=== PATIENT | male | born 1980 | race African-American/Black ===

== ENCOUNTER 2024-03-03 10:59 | Outpatient (AMB) | payer OTHER, SELFPAY ==
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
[2024-03-03 11:12] VITALS: BMI 31.2
== END 2024-03-03 11:26 | disposition home or self-care (01) ==
PROVIDERS: PCP Internal Medicine; Visit Provider Orthopaedic Surgery
DX: M25.511 Pain in right shoulder (principal)
CPT/HCPCS: 99203

== ENCOUNTER → 2024-03-03 10:59 | Outpatient (BNVA) | payer OTHER, SELFPAY | PROVIDERS: PCP Internal Medicine; Visit Provider Orthopaedic Surgery ==

== ENCOUNTER 2024-05-11 13:33 | Outpatient (AMB) | payer OTHER, SELFPAY ==
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
== END 2024-05-11 13:41 | disposition home or self-care (01) ==
LOC: HO.HOS 13:33
PROVIDERS: PCP Internal Medicine; Visit Provider Orthopaedic Surgery
DX: M25.511 Pain in right shoulder (principal)
CPT/HCPCS: 99213

== ENCOUNTER → 2024-05-11 13:33 | Outpatient (BNVA) | payer OTHER, SELFPAY | PROVIDERS: PCP Internal Medicine; Visit Provider Orthopaedic Surgery ==

== ENCOUNTER 2024-08-01 13:01 | Outpatient (AMB) | payer OTHER, SELFPAY ==
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
--- OUTSIDE RECORDS SUMMARY | 2024-08-01 14:18 | XMS_ITS | Continuity of Care Document ---
Author Organization [facility] Address [address] [place] [address]- Care Team Providers Care Punchboard Inserter Name Role Phone Rosa Elena WONG, Rosie Tatum Primary Care Physician [id number] Date(s): 06/07/24 - 07/07/[address] [address] Encounter Type: Triage Allergies, Adverse Reactions, Alerts No Known Allergies Immunizations Given and Recorded Vaccine Date Status Refusal Reason SARS-CoV-2 (COVID-19) mRNA BNT-162b2 vac 06/15/21 Recorded SARS-CoV-2 (COVID-19) mRNA BNT-162b2 vac 1 11/12/20 Recorded SARS-CoV-2 (COVID-19) mRNA BNT-162b2 vac 10/22/20 Recorded influenza virus vaccine, inactivated 05/27/16 Eulalio rded influenza virus vaccine, inactivated 2 04/16/16 Gi floresita tetanus/diphtheria/pertussis, acel(Tdap) 01/25/14 Given 1Result Comment: [facility] 2Admin Note: Declined Medications atorvastatin 20 mg oral tablet 1 tablet = 20 mg, By Mouth, Daily at bedtime, # 90 tablet, 2 Refills, Maintenance, 05/30/24 4:03:00PM EST, Tablet, [id number], Partial fill upon patient request if the prescription is for a schedule II opioid drug., 179, cm, 05/30/24 15:44:00 EST, Height, 104.5, kg, 09/17/22 12:29:00 EST, Dry Weight Start Date: 05/30/24 Status: Ordered Quantity: 90.0 Unit: tablet Repeat number: 3 methylphenidate 20 mg oral tablet 1 tablet = 20 mg, By Mouth, 3 times a day, last dose before 6 PM Dx: narcolepsy, # 90 tablet, 0 Refills, Maintenance, 06/07/24 4:35:00 PM EST, Tablet, [facility] #[id number], mistakenly sent to [email or web address] to [facility], 179, cm, 05/30/24 15:44:00 EST, Height, 104.5, kg, 09/17/22 12:29:00 EST, Dry Weight Start Date: 06/07/24 Status: Ordered Quantity: 90.0 Unit: tablet Repeat number: 1 sildenafil 100 mg oral tablet 1 tablet, By Mouth, Daily, PRN NEEDED FOR ERETILE DYSFUNCTION, BEFORE SEXUAL ACTIVITY, # 30 tablet, 2 Refills, Maintenance, 06/25/24 12:09:00 PM EST, [facility] # [facility], 179, cm, 05/30/24 15:44:00 EST, Height, 104.5, kg, 09/17/22 12:29:00 EST, Dry Weight Start Date: 06/25/24 Stop Date: 06/25/24 Status: Ordered Quantity: 30.0 Unit: tablet Repeat number: 3 Problem List Condition Confirmation Course Effective Dates Status Health St atus Informant Asthma, intermittent Confirmed Active Narcolepsy with cataplexy Confirmed Active Dyslipidemia 1 Confirmed Active Elevated serum creatinine Confirmed Active Erectile dysfunction Confirmed Active Family history of neoplasm of breast 2 Confirmed Active Grief Confirmed Active Obese class I Confirmed Active Prediabetes Confirmed Active 1LDL 195 (10/21) 2mother at early 40s (<42) Social History Social History Type Response Smoking Status Never (less than 100 in lifetime) entered on: 03/27/22 Sex Sex Representation Male (finding) Patient Care team information Care Team Personnel Name: Rosie Cuba NP Position: S PCO Associate Professional Member Role: PCP [facility] [address] [place] [address]- Telecom: Care Team Related Persons Name: LIYA SAAVEDRA Name: NALDO SAAVEDRA Insurance Providers Guarantor name: ROSELINE Health Plan Information #: 1 Payer: [facility] Member Number: ROSELINE Policy Number: ROSELINE Group Number: [id number]
--- OUTSIDE RECORDS SUMMARY | 2024-08-01 14:18 | XMS_ITS | Data Portability ---
Author Organization [facility] [place] [facility] [address] Address [address] [place] [address] Assessment No assessment recorded. Plan of Treatment Reminders Order Date Submit Date Provider Last Modified By Organization Details Last Modified Time Details Appointments None record ed. Lab None record ed. Referral None record ed. Procedures None record ed. Surgeries None record ed. Imaging None record ed. Medication Orders None record ed. Patient TargetsNo targets recorded. Patient Instructions Encounter Date Encounter Id Patient Instructions Last Modified By Organization Details Last Modified Time 06/25/2022 [id number] viral infections : care instructions [email or web address] Not available 06/25/2022 16:38:26 Acute Sinusitis: Care Instructions [email or web address] Not available 06/25/2022 16:38:26 Rest. Drink plen ty of fluids. See printed instructions. Nutritional supplements that may benefit you include: Vitamin D3 5,000 IU daily Vitamin C 1,000mg 3 times daily Zinc 25mg 2 times daily Gargling with Listerine and using a saline nasal spray several times daily may decrease viral replication in your nose and mouth. If your symptoms significantly worsen you will need to go to the Emergency Department for evaluation. If no improvement in a few days follow-up with your doctor. [email or web address] Not available 06/25/2022 16:38:26 Reason for Referral None Reported. Problems Name Problem SNOMED Code Status Onset Date Resolution Date Notes Provider Name and Address Organization Details Recorded Time Narcolepsy [id number] Active 022 [facility] 15:25:31 Problem Notes None recorded. Medical Equipment None Reported. Allergies No known drug allergies Medications Name Sig Start Date Stop Date Status Note LastModified by Organization Details LastModified Time methylphenidate active Not Available N ot Available Not Available Vitals Date Recorded Body height Provider Name an d Address Organization Details Last Updated DateTime 06/25/2022 182.88 cm ELIE JHAVERI PA - [facility] 06/25/2022 15:24:33 Date Recorded Body mass index (BMI) Body weight Provider Name and Address Organization Details Last Updated DateTime 06/25/2022 31.9 kg/m2 579781.21 g ELIE JHAVERI [facility] - [facility] 06/25/2022 15:24:36 Date Recorded Respiratory rate Provider Name a nd Address Organization Details Last Updated DateTime 06/25/2022 20 /min ELIE JHAVERI PA - [facility] 06/25/2022 15:24:39 Date Recorded Pain severity - 0-10 verbal numeric rating [Score] - Reported Provider Name and Address Organization Details Last Updated DateTime 06/25/2022 0 ELIE JHAVERI PA - [facility] 06/25/2022 15:24:43 Date Recorded Body temperature Provider Name a nd Address Organization Details Last Updated DateTime 06/25/2022 98.6 [degF] ELIE JHAVERI PA - [facility] 06/25/2022 15:26:48 Date Recorded Heart rate Provider Name an d Address Organization Details Last Updated DateTime 06/25/2022 67 /min ELIE JHAVERI PA - [facility] 06/25/2022 15:27:06 Date Recorded Oxygen saturation Oxygen saturation in Arterial blood by Pulse oximetry Provider Name and Address Organization Details Last Updated DateTime 06/25/2022 100 % 100 % ELIE JHAVERI PA - [facility] 06/25/2022 15:27:09 Date Recorded Systolic blood pressure Diastolic blood pressure Provider Name and Address Organization Details Last Updated DateTime 06/25/2022 127 mm[Hg] 77 mm[Hg] ELIE JHAVERI PA - [facility] 06/25/2022 15:27:30 Social History Question Answer Notes LastModified by Organizat ion Details LastModified Time Tobacco Smoking Status Never Smoker ELIE JHAVERI kaela, PA - [facility] 06/25/2022 15:25:45 What Is Your Level Of Alcohol Consumption? Occasional Information not available 06/25/2022 Do You Use Any Illicit Or Recreational Drugs? No Information not available 06/25/2022 Have You Recently Traveled Abroad? No Information not available 06/25/2022 Do You Or Have You Ever Used Any Other Forms Of Tobacco Or Nicotine? No Information not available 06/25/2022 Sex: Unknown Functional Status None recorded. Mental Status None recorded. Family History Relationship Description Onset Age of this Age Resolved Age Notes LastModified by Organization Details LastModified Time Father No current problems or disability Not available 06/25 15:25:34 Mother No current problems or disability Not available 06/25 15:25:34 Medical History No medical history recorded. Immunizations Vaccine Type Date Status Note Provider Nam e and Address Organization Details Recorded Time COVID-19, mRNA, LNP-S, PF, 30 mcg/0.3 mL dose 06/15/2021 completed ELIE DESMITH null, PA - [facility] 06/25/2022 15:24:48 COVID-19, mRNA, LNP-S, PF, 30 mcg/0.3 mL dose 11/12/2020 completed ELIE DESMITH null, PA - [facility] 06/25/2022 15:24:48 Influenza, split virus, trivalent, PF 05/27/2016 completed ELIE DESMITH null, PA - [facility] 06/25/2022 15:24:48 COVID-19, mRNA, LNP-S, PF, 30 mcg/0.3 mL dose 10/22/2020 completed ELIE DESMITH null, PA - [facility] 06/25/2022 15:24:48 Past Encounters Encounter ID Performer Location Encounter Start Date Encounter Closed Date Diagnosis/Indication Diagnosis SNOMED-CT Code Diagnosis ICD10 Code Diagnosis Note [id number] [address] [facility] [place] [address] 08/17/2015 12:16:34 08/17/2015 13:10:11 [id number] [address] [facility] [place] [address] 05/14/2021 11:35:12 05/14/2021 14:45:08 [id number] [address] [facility] [place], [place] [address] 12/07/2017 08:18:19 12/07/2017 08:54:55 [id number] [address] [facility] [place] [address] 07/24/2018 10:53:28 07/24/2018 11:45:55 [id number] [address] [facility] [place] [id number] 09/28/2019 08:19:18 09/28/2019 09:12:29 [id number] Keesha Solis [place] [address] [facility] [address] 06/25/2022 10:03:16 06/25/2022 16:42:11 Viral syndrome [id number] B34.9 Health Concerns Section Related Observation LastModified by Organization Detai ls LastModified Time None Recorded Concern Status LastModified by Organization Details LastModified Time None Recorded Advance Directives Directive None Recorded Payers Encounter Date Sequence Insurance Name Policy Number Policy Laura Covered Member ID Laura Member ID Guarantor Name 12/07/2017 1 [facility] [id number] 1 Matthew Shore [id number] Matthew Shore 07/24/2018 1 [facility] [id number] 1 Matthew Shore [id number] Matthew Shore 05/14/2021 1 [facility] [id number] 1 Matthew Shore [id number] Matthew Shore 06/25/2022 1 [facility] [id number] 1 Matthew Shore [id number] Matthew Shroe Notes Date Note Type Note Provider Name and Address Organization Details Recorded Time 06/25/2022 text/html Sinus Complaints UCReported bypatient.Locatio n:Nasal congestion. Associated Symptoms:no fever; no difficulty breathing; no nausea or vomiting; no sore throat; No post nasal drip; no nasal itching; no eye itching; no dizziness;nasal discharge from both nostrils;ear fullness;cough Onset/Timing:init ially started 1days ago Quality:minimal discomfort Duration:constant Severity:mild Context:no recent sick contacts Aggravating factors:nothing makes it worseNotes:42 year old male presenting for evaluation due to concern about having a possible sinus infection. The patient reports nasal congestion, yellow nasal discharge, productive cough and bilateral ear pressure and sneezing for one day. No fever, chills, sinus pressure, headache, rash, stiff neck, sore throat, chest pain, shortness of breath, GI symptoms or body aches. He had covid 06/15/22 and had fully recovered. Keesha Solis MD [address] [facility] [place], [address], PA - [facility] 06/25/2022 16:53:47
--- OUTSIDE RECORDS SUMMARY | 2024-08-01 14:18 | XMS_ITS | Continuity of Care Document ---
Author Organization [facility] Adult Address [address] [place] [address]- Care Team Providers Care Auto Design Detailer Name Role Phone Rosie Cuba NP Primary Care Physician [phone] Encounter [facility] Date(s): 06/25/24 - 07/25/[address] [address]- Encounter Type: Triage Allergies, Adverse Reactions, Alerts No Known Allergies Immunizations Given and Recorded Vaccine Date Status Refusal Reason SARS-CoV-2 (COVID-19) mRNA BNT-162b2 vac 06/15/21 Recorded SARS-CoV-2 (COVID-19) mRNA BNT-162b2 vac 1 11/12/20 Recorded SARS-CoV-2 (COVID-19) mRNA BNT-162b2 vac 10/22/20 Recorded influenza virus vaccine, inactivated 05/27/16 Eulalio rded influenza virus vaccine, inactivated 2 04/16/16 Gi floresita tetanus/diphtheria/pertussis, acel(Tdap) 01/25/14 Given 1Result Comment: [facility] 2Admin Note: Declined Medications atorvastatin 20 mg oral tablet 1 tablet = 20 mg, By Mouth, Daily at bedtime, # 90 tablet, 2 Refills, Maintenance, 05/30/24 4:03:00PM EST, Tablet[id number] Partial fill upon patient request if the [...] Refills, Maintenance, 06/07/24 4:35:00 PM EST, Tablet, [id number], [facility], 179, cm, 05/30/24 15:44:00 EST, Height, 104.5, kg, 09/17/22 12:29:00 EST, Dry Weight Start Date: 06/07/24 Status: Ordered Quantity: 90.0 Unit: tablet Repeat number: 1 sildenafil 100 mg oral tablet 1 tablet, By Mouth, Daily, PRN NEEDED FOR ERETILE DYSFUNCTION, BEFORE SEXUAL ACTIVITY, # 30 tablet, 2 Refills, Maintenance, 06/25/24 12:09:00 PM EST, [facility] # [facility], 179, cm, 05/30/24 15:44:00 [...] PCO Associate Professional Member Role: PCP [facility] [address] [place] [address]- Telecom: Care Team Related Persons Name: LIYA SAAVEDRA Name: NALDO SAAVEDRA Insurance Providers Guarantor name: ROSELINE Health Plan Information #: 1 Payer: [facility] Member Number: ROSELINE Policy Number: ROSELINE Group Number: [id number]
== END 2024-08-01 14:19 | disposition home or self-care (01) ==
LOC: HO.HOS 13:01
PROVIDERS: PCP Internal Medicine; Visit Provider Orthopaedic Surgery
DX: M67.911 Unspecified disorder of synovium and tendon, right shoulder (principal)
CPT/HCPCS: 99213

== ENCOUNTER → 2024-08-01 13:01 | Outpatient (BNVA) | payer OTHER, SELFPAY | PROVIDERS: PCP Internal Medicine; Visit Provider Orthopaedic Surgery ==

== ENCOUNTER 2024-11-25 10:27 | Outpatient (AMB) | payer OTHER, SELFPAY ==
--- OUTSIDE RECORDS SUMMARY | 2024-11-25 10:48 | XMS_ITS | Data Portability ---
Author Organization [facility] [address] [address] Address [address] [place] [address] Assessment No assessment recorded. Plan of Treatment [...] By Organization Details Last Modified Time 06/25/2022 [id number] viral infections : care instructions [email or web address] Not available 06/25/2022 16:38:26 Acute Sinusitis: Care Instructions [email or web address] Not available 06/25/2022 16:38:26 Rest. Drink plen [...] a few days follow-up with your doctor. [email or web address] Not available 06/25/2022 16:38:26 Reason for Referral None Reported. Problems Name Problem SNOMED Code Status Onset Date Resolution Date Notes Provider Name and Address Organization Details Recorded Time Narcolepsy 55697019 Active 022 Z[facility]DA [facility] 15:25:31 Problem Notes None recorded. Medical Equipment None Reported. Allergies No known drug allergies Medications Name Sig Start Date Stop Date Status Note LastModified by Organization Details LastModified Time methylphenidate active Not Available N ot Available Not Available Vitals Date Recorded Body height Body mass index (BMI) Body weight Respiratory rate Pain severity - 0-10 verbal numeric rating [Score] - Reported Body temperature Heart rate Oxygen saturation Oxygen saturation in Arterial blood by Pulse oximetry Systolic blood pressure Diastolic blood pressure Provider Name and Address Organization Details Last Updated DateTime 182.88 cm 31.9 kg/m2 335916. 21 g 20 /min 0 98.6 [degF] 67 /min 100 % 100 % 127 mm[Hg] 77 mm[Hg] ELIE JHAVERI PA - [facility] 15:27:30 Social History Question Answer Notes LastModified by [employer] Details LastModified Time Tobacco Smoking Status Never Smoker ELIE sherwood PA - [facility] 06/25/2022 15:25:45 Have You Recently Traveled Abroad? No Information not available 06/25/2022 Sex: Unknown Functional Status Question Answer Note LastModified by [employer] Details LastModified Time Do you use any illicit or recreational drugs? No Information not available 06/25/2022 Do you or have you ever used any other forms of tobacco or nicotine? No Information not available 06/25/2022 What is your level of alcohol consumption? Occasional Information not available 06/25/2022 Mental Status None recorded. Family History Relationship [...] 30 mcg/0.3 mL dose 06/15/2021 completed ELIE sherwood PA - [facility] 06/25/2022 15:24:48 COVID-19, mRNA, LNP-S, PF, 30 mcg/0.3 mL dose 11/12/2020 completed ELIE sherwood PA - [facility] 06/25/2022 15:24:48 Influenza, split virus, trivalent, PF 05/27/2016 completed ELIE sherwood, PA - [facility] 06/25/2022 15:24:48 COVID-19, mRNA, LNP-S, PF, 30 mcg/0.3 mL dose 10/22/2020 completed ELIE sherwood, PA - [facility] 06/25/2022 15:24:48 Past Encounters Encounter ID Performer Location Encounter Start Date Encounter Closed Date Diagnosis/Indication Diagnosis SNOMED-CT Code Diagnosis ICD10 Code Diagnosis Note [id number] [address] [facility] [place] [address] 08/17/2015 12:16:34 08/17/2015 13:10:11 [id number] [address] [facility] [place] [address] 05/14/2021 11:35:12 05/14/2021 14:45:08 [id number] [address] [facility] [place] [address] 12/07/2017 08:18:19 12/07/2017 08:54:55 [id number] [address] [facility] [place] [address] 07/24/2018 10:53:28 07/24/2018 11:45:55 [id number] [address] [facility] [place] [address] 09/28/2019 08:19:18 09/28/2019 09:12:29 [id number] Keesha Solis MD [address] [facility] [place] [address] 06/25/2022 10:03:16 06/25/2022 16:42:11 Viral syndrome 436926153 B34.9 Health Concerns Section Related Observation LastModified by Organization Detai ls LastModified Time None Recorded Concern Status LastModified by Organization Details LastModified Time None Recorded Advance Directives Directive None Recorded Payers Insurance Date Sequence Insurance Name Policy Number Policy Laura Covered Member ID Laura Member ID Guarantor Name 06/25/2022 1 [facility] [id number] 1 Matthew Shore [id number] Matthew Shore Notes Date Note Type Note Provider Name [...] had fully recovered. Keesha Solis MD [address] [place], [address], [place] - [facility] 06/25/2022 16:53:47
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
[2024-11-25 11:01] VITALS: BMI 31.2
== END 2024-11-25 11:24 | disposition home or self-care (01) ==
LOC: HO.HOS 10:28
PROVIDERS: PCP Internal Medicine; Visit Provider Orthopaedic Surgery
DX: M75.101 Unspecified rotator cuff tear or rupture of right shoulder, not specified as traumatic (principal)
CPT/HCPCS: 99214

== ENCOUNTER → 2024-11-25 10:27 | Outpatient (BNVA) | payer OTHER, SELFPAY | PROVIDERS: PCP Internal Medicine; Visit Provider Orthopaedic Surgery ==

== ENCOUNTER → 2024-12-14 08:02 | Day surgery (SDC) | payer OTHER, SELFPAY ==
--- OUTSIDE RECORDS SUMMARY | 2024-11-29 09:25 | XMS_ITS | Data Portability ---
Author Organization [facility] [place] [facility] [address] [address] Address [address] [place] [address] Assessment No assessment recorded. Plan of Treatment [...] By Organization Details Last Modified Time 06/25/2022 [id number] viral infections : care instructions [email or web address] Not available 06/25/2022 16:38:26 Acute Sinusitis: Care Instructions [email or web address] Not available 06/25/2022 16:38:26 Rest. Drink plen [...] a few days follow-up with your doctor. Not available 06/25/2022 16:38:26 Reason for Referral None Reported. Problems Name Problem SNOMED Code Status Onset Date Resolution Date Notes Provider Name and Address Organization Details Recorded Time Narcolepsy 14007060 Active 022 ZAYDA [facility] 15:25:31 Problem Notes None recorded. Medical Equipment None Reported. Allergies No known drug allergies Medications Name Sig Start Date Stop Date Status Note LastModified by Organization Details LastModified Time methylphenidate active Not Available N ot Available Not Available Vitals Date Recorded Body height Body mass index (BMI) Body weight Respiratory rate Body temperature Heart rate Oxygen saturation Oxygen saturation in Arterial blood by Pulse oximetry Systolic blood pressure Diastolic blood pressure Provider Name and Address Organization Details Last Updated DateTime 182.88 cm 31.9 kg/m2 901088. 21 g 20 /min 98.6 [degF] 67 /min 100 % 100 % 127 mm[Hg] 77 mm[Hg] ELIE JHAVERI PA - [facility] 15:27:30 Social History Question Answer Notes LastModified by [employer] Details LastModified Time Tobacco Smoking Status Never Smoker ELIE sherwood PA - [facility] 06/25/2022 15:25:45 Have You Recently Traveled Abroad? No Information not available 06/25/2022 Sex: Unknown Functional Status Question Answer Note LastModified by [employer] Details LastModified Time Do you use any [...] 30 mcg/0.3 mL dose 11/12/2020 completed ELIE JHAVERI null PA - [facility] 06/25/2022 15:24:48 Influenza, split virus, trivalent, PF 05/27/2016 completed ELIE sherwood PA - [facility] 06/25/2022 15:24:48 COVID-19, mRNA, LNP-S, PF, 30 mcg/0.3 mL dose 10/22/2020 completed ELIE sherwood PA - [facility] 06/25/2022 15:24:48 Past Encounters Encounter ID Performer Location Encounter Start Date Encounter Closed Date Diagnosis/Indication Diagnosis SNOMED-CT Code Diagnosis ICD10 Code Diagnosis Note [id number] [address] [facility] [place] [address] 08/17/2015 12:16:34 08/17/2015 13:10:11 [id number] [address] [facility] [place] [address] 05/14/2021 11:35:12 05/14/2021 14:45:08 [id number] [address] [facility] [place] [address] 12/07/2017 08:18:19 12/07/2017 08:54:55 [id number] [address] [facility] [place] [address] 07/24/2018 10:53:28 07/24/2018 11:45:55 [id number] [address] [facility] [place] [address] 09/28/2019 08:19:18 09/28/2019 09:12:29 [id number] Keesha Solis MD [address] [facility] [place] [address] 06/25/2022 10:03:16 06/25/2022 16:42:11 Viral syndrome 870856366 B34.9 Health Concerns Section Related Observation LastModified by Organization Detai ls LastModified Time None Recorded Concern Status LastModified by Organization Details LastModified Time None Recorded Advance Directives Directive None Recorded Payers Insurance Date Sequence Insurance Name Policy Number Policy Laura Covered Member ID Laura Member ID Guarantor Name 06/25/2022 1 [facility] [id number] 1 Matthew Shore [id number] Matthew Shore Notes Date Note Type Note [...] had fully recovered. Keesha Solis MD [address] [facility] [address] [place], [address], [place] - [facility] 06/25/2022 16:53:47
[2024-12-12 07:52] VITALS: BMI 31.2
--- NOTE | 2024-12-12 15:15 | P.CONAN_ITS ---
HPI - Anesthesia Eval Consult details Narrative: 44yo M for Right Shoulder Arthroscopy,possible Tenodesis,possible Rotator Cuff Repair No PMHx per orthopedic eval. ? 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
--- NOTE | 2024-12-14 08:40 | PC.NURSE ---
patient had questions about recovery of procedure, Dr. Loving at bedside, educated on recovery time of at least 6 weeks. 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 patient to be rescheduled at this time,
== END | disposition home or self-care (01) ==
LOC: HO.SSS 08:03
PROVIDERS: PCP Nurse Practitioner Family; Visit Provider Orthopaedic Surgery
DX: M75.121 Complete rotator cuff tear or rupture of right shoulder, not specified as traumatic (principal); Z53.29 Procedure and treatment not carried out because of patient's decision for other reasons; M25.511 Pain in right shoulder

== ENCOUNTER 2025-02-10 11:45 | Outpatient (AMB) | payer OTHER, SELFPAY ==
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
[2025-02-10 12:04] VITALS: BP 145/84; PULSE 60; TEMP 37.1; BMI 31.5
== END 2025-02-10 12:28 | disposition home or self-care (01) ==
LOC: HO.HOS 11:45
PROVIDERS: PCP Nurse Practitioner Family; Visit Provider Physician Assistant
DX: M75.101 Unspecified rotator cuff tear or rupture of right shoulder, not specified as traumatic (principal)
CPT/HCPCS: 99024

== ENCOUNTER 2025-02-15 08:00 | Day surgery (SDC) | payer OTHER, SELFPAY ==
--- OUTSIDE RECORDS SUMMARY | 2025-01-16 12:43 | XMS_ITS | Data Portability ---
Author Organization [facility] [address] [place] [address] Assessment No assessment recorded. Plan of Treatment [...] By Organization Details Last Modified Time 06/25/2022 [id number] viral infections : care instructions [email or web address] Not available 06/25/2022 16:38:26 Acute Sinusitis: Care Instructions [email or web address] Not available 06/25/2022 16:38:26 Rest. Drink plen [...] a few days follow-up with your doctor. [email or web address] Not available 06/25/2022 16:38:26 Reason for Referral None Reported. Problems Name Problem SNOMED Code Status Onset Date Resolution Date Notes Provider Name and Address Organization Details Recorded Time Narcolepsy 28526620 Active 022 Z[facility] 15:25:31 Problem Notes None recorded. Medical Equipment [...] in Arterial blood by Pulse oximetry Systolic And Diastolic Provider Name and Address Organization Details Last Updated DateTime 182.88 cm 31.9 kg/m2 359104. 21 g 20 /min 98.6 [degF] 67 /min 100 % 100 % 127/77 mm[Hg] ELIE JHAVERI PA - [facility] 15:27:30 Social History Question Answer Notes LastModified by [employer] Details LastModified Time Tobacco Smoking Status Never Smoker ELIE sherwood PA - [facility] 06/25/2022 15:25:45 Have You Recently Traveled Abroad? No Information not available 06/25/2022 Sex: Unknown Functional Status Question Answer Note LastModified by [employer] Details LastModified Time Do you use any [...] SNOMED-CT Code Diagnosis ICD10 Code Diagnosis Note [id number] [address] [place] [address] 08/17/2015 12:16:34 08/17/2015 13:10:11 [id number] [address] [place] [address] 05/14/2021 11:35:12 05/14/2021 14:45:08 [id number] [address] [place] [address] 12/07/2017 08:18:19 12/07/2017 08:54:55 [id number] [address] [place] [address] 07/24/2018 10:53:28 07/24/2018 11:45:55 [id number] [address] [place] [address] 09/28/2019 08:19:18 09/28/2019 09:12:29 [id number] Keesha Solis MD [address] [place] [address] 06/25/2022 10:03:16 06/25/2022 16:42:11 Viral syndrome 559886871 B34.9 Health Concerns Section Related Observation LastModified by Organization Detai ls LastModified Time None Recorded Concern Status LastModified by Organization Details LastModified Time None Recorded Advance Directives Directive None Recorded Payers Insurance Date Sequence Insurance Name Policy Number Policy Laura Covered Member ID Laura Member ID Guarantor Name 06/25/2022 1 [facility] [id number] 1 Matthew Shore [id number] Matthew Shore Notes Date Note Type Note [...] had fully recovered. Keesha Solis MD [address] [facility] [place] juá[place], [address], [place] - [facility] 06/25/2022 16:53:47
--- OUTSIDE RECORDS SUMMARY | 2025-01-16 12:43 | XMS_ITS ---
Author Name [facility] Organization Unknown Encounters Encounter Type Encounter Reason Primary Diagnosis Location Date [facility]ulatory [facility] 06/25/2022
[2025-02-13 07:17] VITALS: BMI 31.5
--- NOTE | 2025-02-14 08:11 | HO.ANESPROP2 ---
Documented by User: Jasmin Long NP 02/14/25 08:11 HPI - Anesthesia Eval Consult details Narrative: 89yo M for Right Shoulder Arthroscopy,possible Bicep Tenodesis,possible Rotator Cuff Repair PMFSH Active Problems Active Problems: All Active Problems Rotator cuff tear, right (Acute) Dysfunction of right rotator cuff (Acute) Right shoulder pain (Acute) Past Medical History Medical History Narcolepsy Surgical History Surgical History History of wisdom tooth extraction Social History Social History Household Members Other:: brother Are you a primary careers counsellor to a significant other at home: No Do you presently have visiting nurse or other home services: No Alcohol intake: current Alcohol intake frequency: holidays/special occasions only Patient Tobacco Use Status: Never used Tobacco Substance Use Type: Marijuana Substance Use Frequency: Occasionally Have you been hit, kicked, punched, or otherwise hurt by someone within the past year? 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 [employer] Allergies Allergy/AdvReac Type Severity Reaction Status Date / Time No Known Allergies Allergy Verified 02/15/25 08:35 Home Medications ?Medication ?Instructions ?Recorded ?Confirmed ?Last Taken ?Type methylphenidate HCl 20 mg tablet 20 mg PO TID 03/03/24 02/15/25 Unknown History Exam Height,Weight and Vital Signs: Height 6 ft Weight 105.233 kg Assessment and Plan Assessment Anesthesia Assessment: Chart Reviewed Documented by User: Arin Rosario MD 02/15/25 10:51 PMFSH Past Medical History Medical History Narcolepsy Family History Family history of problems with anesthesia: No Surgical History Surgical History History of wisdom tooth extraction History of Problems with Anesthesia: No Social History Social History Household Members Other:: brother Are you a primary careers counsellor to a significant other at home: No Do you presently have visiting nurse or other home services: No Alcohol intake: current Alcohol intake frequency: holidays/special occasions only Patient Tobacco Use Status: Never used Tobacco Substance Use Type: Marijuana Substance Use Frequency: Occasionally Have you been hit, kicked, punched, or otherwise hurt by someone within the past year? 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 [employer] Allergies Allergy/AdvReac Type Severity Reaction Status Date / Time No Known Allergies Allergy Verified 02/15/25 08:35 Home Medications ?Medication ?Instructions ?Recorded ?Confirmed ?Last Taken ?Type methylphenidate HCl 20 mg tablet 20 mg PO TID 03/03/24 02/15/25 Unknown History Exam Airway Mallampati Class: II TM Dist: >3cm Neck ROM: Full Heart: rrr Lungs: cta Assessment and Plan Assessment Anesthesia Assessment: Anesthesia Plan Discussed Final Anesthetic Review Family History of Problems with Anesthesia: No History of Problems with Anesthesia: No NPO: Yes ASA Class: II (marihuana user) Final Preanesthetic Review: No Changes in Pt Med Stat, Meds/Allgs Chart Reviewed, Consent Obtained/Reviewed and Anes Risks/Benef Reviewed Patient Risk: Low Procedure Risk: Intermediate Anesthetic Plan Anesthetic Plan: GA, Regional Block and Agree w/ Assess. and Plan Disposition: Standard PACU
[2025-02-15] VITALS (8 sets, daily range): BP systolic 123–131; BP diastolic 69–79; PULSE 67–90; RESP 12–18; TEMP 36.1–36.6; O2SAT 96–98
[2025-02-15] MEDS: Lactated Ringers 1,000 ML 100 ML IVCONT (08:44)
--- NOTE | 2025-02-15 08:55 | MHC.SHP ---
Pre-Procedural Eval Section A - 24 Hr Update-Section A only Date of Service: 02/15/25 The patient is an INPATIENT: No Changes since office visit: No Cold of Flu in the past 2 weeks, No New Medical Problems, No Changes in Medication and No Patient answered all questions The patient has been examined within 24 hours of the surgical procedure. The History & Physical has been completed within 30 days and I have reviewed it.: Yes Section B - Complete if H&P > 30 days Chief Complaint: Unspecified rotator cuff tear,biciptial tendinitis Allergies: Allergies Allergy/AdvReac Type Severity Reaction Status Date / Time No Known Allergies Allergy Verified 02/15/25 08:35 Plan I have reviewed the history and physical and performed a pertinent physical examination on my patient. No changes have occurred unless specified. Time Spent With Patient Time: Total time managing care of this patient today ____ minutes.
--- NOTE | 2025-02-15 12:54 | PM.OP ---
Brief Operative Note Date of Service: 02/15/25 Pre-op diagnosis: right shoulder RTC tear Post-op diagnosis: same Procedure: Right RTC repair with SAD snd DCE Implants: Marquez and Nephew 4.75 double loaded x 2; 5.0 Knotless helacoil x 2 Regeneten bio-inductive colalgen patch, medium Surgeon: Raf Roberts MD Anesthesia: GETA and regional Was an Instructional Supervisor used for this Procedure?: Yes Instructional Supervisor: Jerica Garcia Estimated blood loss (mL): 10 IV fluids (mL): 1,000 Pathology: none sent Condition: stable Disposition: PACU
--- NOTE | 2025-02-20 07:57 | W.PM.OPN ---
Operative Note Operative Note Date of Service: 02/15/25 Narrative: Date of Service: 02/15/25 Pre-op diagnosis: right shoulder RTC tear Post-op diagnosis: same Procedure: Right RTC repair with SAD snd DCE Implants: [employer]quez [employer] Nephew 4.75 double loaded x 2; 5.0 Knotless helacoil x 2 Regeneten bio-inductive collagen patch, medium Surgeon: Raf Roberts MD Anesthesia: GETA and regional Was an Envelope Folding Machine Operator used for this Procedure?: Yes Envelope Folding Machine Operator: Jerica Garcia Estimated blood loss (mL): 10 IV fluids (mL): 1,000 Pathology: none sent Condition: stable Disposition: PACU Procedure in detail: Patient was brought to the operating room and placed the the beach chair position. All bony prominences were well padded and the limb was prepped and draped in standard sterile fashion. A time out was called to identify proper site, proper procedure and proper surgeon. IV antibiotics per weight were administered. I began by making a posterolateral stab incision with a 15 blade. A blunt trochar was placed into the glenohumeral joint and I insufflated the joint with saline and a 30 degree arthroscope was placed. I established an outside- in anterior portal just distal to the biceps tendon. I then began my inspection of the glenohumeral joint. There was synovitis of the anterior interval which was debrided with a shaver. The biceps anchor in the labrum were intact without tearing. There were no cartilage changes. The subcapularis was intact. There was high-grade undersurface tearing of the supraspinatus. I then removed the trochar and entered the subacromial space. A direct lateral portal was then established and I performed a bursectomy. The cuff was then examined. There was a near full thickness tear of the supraspinatus without retraction. I debrided the remaining tissue until I could visualize the full-thickness tear. This was approximately 8 mm in diameter involving predominantly the supraspinatus. I established a 2nd lateral portal under direct visualization. I then made a stab incision superiorly through which I placed two medial row double loaded anchors after using a tap just adjacent to the articular cartilage and then brought the suture limbs ( 8) through the medial cuff. I then debrided the bare area down to bleeding bone and, using a cross bridge configuration, brought 4 limbs to each of two lateral 5.0 anchors. This re-approximated the cuff anatomy anatomically. I then performed a 5 mm subacromial decompression. The decision was made to add a medium Regeneten bio inductive collagen implant. This was inserted through the lateral portal and held in place with for medial peek rj and 2 lateral peek bone rj. This covered the site of repair. Once I was satisfied with the repair final images were captured and I removed all instrumentation. Portals were closed with nylon. Patient was placed in an abduction sling, extubated and brought to the recovery room in stable condition. There were no known complications.
== END 2025-02-15 14:54 | disposition home or self-care (01) ==
LOC: HO.SSS 08:01
PROVIDERS: PCP Nurse Practitioner Family; Visit Provider Orthopaedic Surgery
PROC: (CPT 29827; principal; 2025-02-15 11:20)
DX: S46.011A Strain of muscle(s) and tendon(s) of the rotator cuff of right shoulder, initial encounter (principal); M75.21 Bicipital tendinitis, right shoulder; M19.011 Primary osteoarthritis, right shoulder; V89.2XXA Person injured in unspecified motor-vehicle accident, traffic, initial encounter; Y93.9 Activity, unspecified; Y92.9 Unspecified place or not applicable; Y99.9 Unspecified external cause status; G47.419 Narcolepsy without cataplexy; Z79.899 Other long term (current) drug therapy
CPT/HCPCS: 29827; 29826; C1713; C1763; J0131; J0665; J0690; J1100; J2003; J2250; J2405; J2704; J3010

== ENCOUNTER → 2025-02-15 08:00 | Outpatient (BNV) | payer OTHER, SELFPAY | PROVIDERS: PCP Nurse Practitioner Family; Visit Provider Orthopaedic Surgery | DX: S46.011A Strain of muscle(s) and tendon(s) of the rotator cuff of right shoulder, initial encounter (principal) | CPT/HCPCS: 29827 ==

== ENCOUNTER 2025-02-23 15:17 | Outpatient (AMB) | payer OTHER, SELFPAY ==
--- NOTE | 2025-02-23 15:20 | MHC.OFFVIS ---
Vital Signs 02/23/25 15:25 Height 6 ft Weight 232 lb BMI 31.5 Handedness Left Intake Visit Reasons: PO: Rt RTC Repair 02/15/25 NE Intake Note: Matthew is a 44 year old left hand dominant male man who presents today for his first post operative visit status post right RTC repair with SAD and DCE DOS: 02/15/[address] Raf Roberts Allergies No Known Allergies Allergy (Verified 02/23/25 15:27) HPI HPI PO: Rt RTC Repair 02/15/25 NE: Details: Mr. Shore is a 44-year-old left-hand dominant male who presents to the office today status post right shoulder rotator cuff repair with collagen patch performed on 02/15/[address] Roberts. Patient presents to the office today in the abduction sling appropriately. He reports that his pain has been manageable. He has not had to take any narcotic medications. He has been taking ibuprofen instead. No additional complaints at this time. 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 Sutures intact. No surrounding erythema or drainage. No signs of infection. 45 degrees forward flexion and abduction. External rotation to neutral. NVI. Psych Appearance: grossly normal Mental Status: mental status grossly normal Attitude: cooperative Assessment & Plan Assessment & Plan (1) Status post right rotator cuff repair: Code(s): Z98.890 - Other specified postprocedural states Category: Surgical Plan Mr. Shore is a 44-year-old left-hand dominant male who presents to the office today status post right shoulder rotator cuff repair with collagen patch performed on 02/15/[address] Roberts. Patient presents to the office today in the abduction sling appropriately. He reports that his pain has been manageable. He has not had to take any narcotic medications. He has been taking ibuprofen instead. No additional complaints at this time. While in the office today, sutures are removed and Steri-Strips were applied. He was placed back into the abduction sling. He was instructed that the sling should remain in place until 6 weeks postoperatively. I provided the patient with a physical therapy prescription as he is interested in attending a facility that is closer to home. I would like him to begin physical therapy within 1 week from today's appointment. If he is unable to arrange this he will contact our office and I will help to arrange an appointment here at [facility]. Lastly, I sent a prescription for ibuprofen 600 mg p.o. q.6 hours p.r.n. pain to the pharmacy. Patient will follow up in [address] Roberts, sooner if needed. Medications: New ibuprofen 600 mg PO Q6H PRN 120 tabs 0RF fever or pain 30 days Coding Level of Care Code Global (05447) Diagnoses Status post right rotator cuff repair Z98.890
[2025-02-23 15:25] VITALS: BMI 31.5
== END 2025-02-23 15:59 | disposition home or self-care (01) ==
LOC: HO.HOS 15:18
PROVIDERS: PCP Nurse Practitioner Family; Visit Provider Physician Assistant
DX: Z98.890 Other specified postprocedural states (principal)
CPT/HCPCS: 99024

== ENCOUNTER 2025-03-09 12:18 | Outpatient (AMB) | payer OTHER, SELFPAY ==
--- NOTE | 2025-03-09 12:51 | A.OFFVIS_ITS ---
Vital Signs 03/09/25 12:54 Height 6 ft Weight 230 lb BMI 31.2 Intake Visit Reasons: PO - Rt RTC Repair 02/15/25 NE Intake Note: Matthew is a 44 year old left hand dominant male man who presents today for follow up post operative visit status post right RTC repair with SAD and DCE done on 02/15/[address] Raf Rboerts. Patient reports that recovery is going well and is having no pain at this time. Patient states he is concerned about a bump on the inner bicep on the vein . Allergies No Known Allergies Allergy (Verified 03/09/25 12:53) HPI HPI PO - Rt RTC Repair 02/15/25 NE: Details: Mr. Shore is a 44-year-old male who presents to the office today status post right shoulder rotator cuff repair 02/15/[address] Roberts. He reports over the past 2 days he has felt a small lump in the biceps over 1 of his veins. He was seen by Physical therapy yesterday who also reported this finding to our office. I discussed possible signs of blood clot with our medical assisting staff who reached out to the patient and instructed if he had any of the symptoms to go to the emergency department otherwise he will be seen in the office today for evaluation. He denies any bicep cramping. He has been in the sling positioned appropriately. No other additional complaints. 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 Biceps is supple and nontender except for the area where the small lump is. There is slight tenderness over this lump. No signs of infection. NVI Assessment & Plan Assessment & Plan (1) Status post right rotator cuff repair: Code(s): Z98.890 - Other specified postprocedural states Category: Surgical Plan Mr. Shore is a 44-year-old male who presents to the office today status post right shoulder rotator cuff repair 02/15/[address] Roberts. He reports over the past 2 days he has felt a small lump in the biceps over 1 of his veins. He was seen by Physical therapy yesterday who also reported this finding to our office. I discussed possible signs of blood clot with our medical assisting staff who reached out to the patient and instructed if he had any of the symptoms to go to the emergency department otherwise he will be seen in the office today for evaluation. He denies any bicep cramping. He has been in the sling positioned appropriately. No other additional complaints. While in the office today, out of an abundance of caution we have sent him for an ultrasound of the right upper extremity to rule out DVT. Should these findings be positive the patient will present to the emergency department for treatment. Otherwise, he will resume back to normal status post rotator cuff repair protocols and physical therapy. Ultrasound of the right upper extremity is scheduled for today at 14:30 with the ultrasound department here at [facility]. On- call provider aware. Orders: Orders US venous duplex UE RT Today Z98.890 - Other specified postprocedural states Coding Level of Care Code Global (52691) Diagnoses Status post right rotator cuff repair Z98.890
[2025-03-09 12:54] VITALS: BMI 31.2
== END 2025-03-09 13:23 | disposition home or self-care (01) ==
LOC: HO.HOS 12:18
PROVIDERS: PCP Nurse Practitioner Family; Visit Provider Physician Assistant
DX: Z98.890 Other specified postprocedural states (principal)
CPT/HCPCS: 99024

== ENCOUNTER 2025-03-09 14:08 | Outpatient (REF) | payer OTHER, SELFPAY ==
--- NOTE | ~2025-03-09 | US_ITS ---
EXAMINATION: US TRIPLEX UPPER EXTREMITY, RIGHT CLINICAL INFORMATION: Postoperative, focal swelling COMPARISON: None available. TECHNIQUE: Color-flow triplex imaging with spectral analysis and compression Doppler was performed on the right upper extremity. FINDINGS: The right internal jugular, subclavian, and axillary veins are patent and free of thrombus. The imaged segment of the right brachiocephalic vein is patent. Spectral doppler waveforms are normal. The brachial, basilic, cephalic, radial, and ulnar veins are patent and compressible. In the area where patient palpates abnormality, there is a hypoechoic region in the deep subcutaneous soft tissues measuring 4 x 2 x 3 mm located over an area labeled mid bicep . There is no increased position. US/US venous duplex UE RT IMPRESSION: No evidence of deep venous thrombosis involving the right upper extremity. Nonspecific hypoechoic region in the deep subcutaneous soft tissues anterior to the mid biceps region measures 4 x 2 x 3 mm. Electronically signed by: Antonio Jameson MD 03/09/2025 03:35 PM EDT
== END 2025-03-09 14:09 | disposition home or self-care (01) ==
LOC: HO.US 14:08
PROVIDERS: PCP Nurse Practitioner Family; Visit Provider Physician Assistant
DX: R60.0 Localized edema (principal); Z98.890 Other specified postprocedural states
CPT/HCPCS: 93971

== ENCOUNTER → 2025-03-09 14:09 | Outpatient (BNV) | payer OTHER, SELFPAY | PROVIDERS: PCP Nurse Practitioner Family; Visit Provider Radiology Diagnostic Radiology | DX: R22.31 Localized swelling, mass and lump, right upper limb (principal) | CPT/HCPCS: 93971 ==

== ENCOUNTER 2025-03-30 10:36 | Outpatient (AMB) | payer OTHER, SELFPAY ==
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
== END 2025-03-30 11:49 | disposition home or self-care (01) ==
LOC: HO.HOS 10:37
PROVIDERS: PCP Nurse Practitioner Family; Visit Provider Orthopaedic Surgery
DX: Z98.890 Other specified postprocedural states (principal)
CPT/HCPCS: 99024

== ENCOUNTER 2025-04-26 13:05 | Outpatient (RCR) | payer OTHER, MEDICAID, SELFPAY ==
--- NOTE | 2025-03-01 09:58 | MHC.PT.EP ---
[facility] [place] Office [place] Office [place] Office [address] Bill Akhtar [address] [phone] F: [phone] F: [phone] F: [phone] F: [phone] Physical Therapy Plan of Care Date of Evaluation: 03/01/25 Date of Surgery: 02/15/25 Diagnosis: s/p right RTC repair with SAD and DCE DOS: 02/15/[address] Roberts Assessment: Pt is a pleasant and motivated 44yo M who is s/p s/p right RTC repair with collagen patch with SAD and DCE on 02/15/[address] Roberts. He is left hand dominant. He has been compliant with sling. He presents to PT with expected impairments in pain, decreased ROM, decreased strength, soft tissue restrictions, and impaired posture. He is limited functionally by general use of R UE. He is an excellent candidate for skilled PT in order to address current impairments to facilitate return to PLOF. He is recommended to be seen 2x/week for 10 weeks in order to progress per protocol safely Frequency and Duration: The patient will be seen 2x/week for 10 weeks Short Term Goals: Pt will be I with HEP to promote self management of symptoms Pt will improve R shoulder flexion PROM to at least 100 deg per protocol Academic Affairs Vice President Goals: Pt will achieve full ROM and strength all planes of right shoulder (per protocol timeline) to assist with lifting and reaching Pt will perform overhead ADLs (per protocol timeline) without pain or compensation Pt will return to safe gym routine with proper mechanics and without pain (per protocol timeline) Treatment Plan: Modalities to reduce pain, spasms and effusion. Manual therapy to restore motion and function. Therapeutic exercise to improve strength and flexibility. Neuromuscular re-education for posture and balance. Therapeutic activities to return to functional activities of daily living. Electronically signed by: Jania Rangel, PT, DPT Please sign and return to therapist. Thank you for your referral.
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
--- NOTE | 2025-05-17 08:52 | MHC.PT.DC ---
[facility] [place] Office [place] Office [place] Office [address] Bill Akhtar [address] [phone] F: [phone] F: [phone] F: [phone] F: [phone] Physical Therapy Discharge Report Diagnosis: s/p right RTC repair with SAD and DCE DOS: 02/15/[address] Roberts Date of Surgery: 02/15/25 Date of Evaluation: 03/01/25 Date of Discharge: Treatments to Date: 9 Cancellations to Date: No Shows to Date: Discharge Status: Discharge Summary: 05/04/25: Pt was called prior to appt time to discuss plan for therapy/confirm appt and pt states he would be calling the office back to let us know. Pt failed to call the office back and NS for the appt. Second NS this week. Pt was previously educated in ability to attempt to accommodate a different day/time/even facility due to new school schedule however due to noncompliance and failure to call back patient will be DC due to non-compliance. Electronically signed by: Deborah Morales, PT, DPT Please sign and return to therapist. Thank you for your referral.
== END 2025-05-15 13:01 | disposition home or self-care (01) ==
LOC: HO.PTS 13:05
PROVIDERS: PCP Nurse Practitioner Family; Visit Provider Physician Assistant
DX: M75.101 Unspecified rotator cuff tear or rupture of right shoulder, not specified as traumatic (principal)
CPT/HCPCS: 97110; 97140; 97161

== ENCOUNTER 2025-05-11 15:10 | Outpatient (AMB) | payer OTHER, SELFPAY ==
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
--- OUTSIDE RECORDS SUMMARY | 2025-05-11 17:56 | XMS_ITS | Data Portability ---
Author Organization [facility] [address] Address [address] [place] [address] Assessment No assessment recorded. Plan of Treatment [...] By Organization Details Last Modified Time 06/25/2022 [id number] viral infections : care instructions Not available 06/25/2022 16:38:26 Acute Sinusitis: Care Instructions [email or web address] Not available 06/25/2022 16:38:26 Rest. Drink plen [...] a few days follow-up with your doctor. [email or web address] Not available 06/25/2022 16:38:26 Reason for Referral None Reported. Problems Name Problem SNOMED Code Status Onset Date Resolution Date Notes Provider Name and Address Organization Details Recorded Time Narcolepsy [id number] Active 022 [facility] 15:25:31 Problem [...] Last Updated DateTime 182.88 cm 31.9 kg/m2 484413. 21 g 20 /min 0 98.6 [degF] 67 /min 100 % 100 % 127/77 mm[Hg] ELIE JHAVERI PA - [facility] 15:27:30 Social History Question Answer Notes LastModified by [employer] Details LastModified Time Tobacco Smoking Status Never Smoker ELIE sherwood PA - [facility] 06/25/2022 15:25:45 Have You Recently Traveled Abroad? No Information not available 06/25/2022 Sex: Unknown Functional Status Question Answer Note LastModified by [employer] Details LastModified Time Do you use any [...] Diagnosis SNOMED-CT Code Diagnosis ICD10 Code Diagnosis IMO Codes Diagnosis Note [id number] [address] [facility] [place] [address] 08/17/2015 12:16:34 08/17/2015 13:10:11 [id number] [address] [place] [address] 05/14/2021 11:35:12 05/14/2021 14:45:08 [id number] [address] [place] [address] 12/07/2017 08:18:19 12/07/2017 08:54:55 [id number] [address] [place] [address] 07/24/2018 10:53:28 07/24/2018 11:45:55 [id number] [address] [place] [address] 09/28/2019 08:19:18 09/28/2019 09:12:29 [id number] Keesha Solis MD [address] [place] [address] 06/25/2022 10:03:16 06/25/2022 16:42:11 Viral syndrome 125741522 B34.9 Health Concerns Section Related Observation LastModified by Organization Detai ls LastModified Time None Recorded Concern Status LastModified by Organization Details LastModified Time None Recorded Advance Directives Directive None Recorded Payers Insurance Date Sequence Insurance Name Policy Number Policy Laura Covered Member ID Laura Member ID Guarantor Name 06/25/2022 1 [facility] [id number] Gama Shore [id number] Matthew Shore Notes Date Note Type Note Provider Name and Address Organization Details Recorded Time 06/25/2022 text/html Sinus Complaints UCReported by PatientHPIFor associated symptoms, patient reportsnasal discharge from both nostrils,ear fullness, andcoughbut reportsno fever,no difficulty breathing,no nausea or vomiting,no sore throat,no post nasal drip,no nasal itching,no eye itching, andno dizziness. For onset/timing, patient reportsinitially started 1days ago. For quality, patient reportsminimal discomfort. For duration, patient reportsconstant. For severity, patient reportsmild. For context, patient reportsno recent sick contacts. For aggravating factors, patient reportsnothing makes it worse. For location, (nasal congestion.).42 year old male presenting for evaluation due to concern about having a possible sinus infection. The patient reports nasal congestion, yellow nasal discharge, productive cough and bilateral ear pressure and sneezing for one day. No fever, chills, sinus pressure, headache, rash, stiff neck, sore throat, chest pain, shortness of breath, GI symptoms or body aches. He had covid 06/15/22 and had fully recovered.ROS as noted in the HPI Keesha Solis MD [address], [address], PA - [facility] 06/25/2022 16:53:47
== END 2025-05-11 15:59 | disposition home or self-care (01) ==
LOC: HO.HOS 15:10
PROVIDERS: PCP Nurse Practitioner Family; Visit Provider Orthopaedic Surgery
DX: Z98.890 Other specified postprocedural states (principal)
CPT/HCPCS: 99024

== ENCOUNTER 2025-06-22 11:11 | Outpatient (AMB) | payer OTHER, SELFPAY ==
[2025-06-22 11:13] VITALS: BMI 31.2
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
== END 2025-06-22 12:09 | disposition home or self-care (01) ==
LOC: HO.HOS 11:12
PROVIDERS: PCP Nurse Practitioner Family; Visit Provider Orthopaedic Surgery
DX: M25.511 Pain in right shoulder (principal); Z98.890 Other specified postprocedural states
CPT/HCPCS: 99213